=== PATIENT | male | born 1970 | race African-American/Black ===

== ENCOUNTER 2017-09-07 16:09 | Emergency (ER) | payer OTHER, MEDICARE ==
--- NOTE | 2017-09-07 16:18 | ED Physician Documentation ---
General Adult - HISTORIAN Historian: patient, paramedics - [facility] Stated Complaint: hypoglycemia Chief Complaint: General Adult Additional Information: Dialysis pt with insulin pump was at [facility]. Says stomach had been upset - he says he has gastroparesis - and he lay down to take a nap. When he woke, he was diaphoretic and clammy and his glucose was 60. He ingested 6 glucose pills. Ems arrived and glucose was in 40's. Given glucagon and D50 and glucose per EMS was 220. On arrival in ER, glucose 154. Pt alert and talking logically. Feels subjectively cold, but almost back to his baseling. - ROS CONST: no problems - PAST HX Past History: other (DM, CRF and dialysis, gastroparesis) Allergies/Adverse Reactions: Allergies Allergy/AdvReac Type Severity Reaction Status Date / Time acetaminophen Allergy Verified 09/07/17 16:32 [From Darvocet-N] atorvastatin [From Lipitor] Allergy Verified 09/07/17 16:32 clarithromycin [From Biaxin] Allergy Verified 09/07/17 16:32 lisinopril Allergy Verified 09/07/17 16:32 metoclopramide [From Reglan] Allergy Verified 09/07/17 16:32 morphine Allergy Verified 09/07/17 16:32 prochlorperazine Allergy Verified 09/07/17 16:32 [From Compazine] propoxyphene Allergy Verified 09/07/17 16:32 [From Darvocet-N] pseudoephedrine Allergy Verified 09/07/17 16:32 [From Sudafed] [id number] Reductase Allergy Verified 09/07/17 16:32 Inhibitor iv dye Allergy Uncoded 09/07/17 16:32 tape Allergy Uncoded 09/07/17 16:32 Home Medications: Ambulatory Orders Medication Instructions Recorded Aspirin [Aspir-Low] 81 mg PO 09/07/17 Azelastine HCl [Astelin] 09/07/17 Azelastine HCl [Astelin] 1 spray NS 09/07/17 Carvedilol [Coreg] 09/07/17 Clonidine [Clonidine] 09/07/17 Docusate Sodium [Colace] 09/07/17 Esomeprazole Magnesium 09/07/17 [Esomeprazole Magnesium] Fluticasone Propionate [[place] 55 mcg IH 09/07/17 Respiclick] Gabapentin [Neurontin] 100 mg PO TID 09/07/17 Hydralazine HCl [Hydralazine HCl] 09/07/17 Insulin Pump Syringe, 1.8 ml 1 each MC 09/07/17 [Minimed [place]] Lactulose [Constulose] 10 gm PO 09/07/17 Lansoprazole [Lansoprazole] 09/07/17 Lansoprazole [Prevacid] 30 mg PO 09/07/17 Linaclotide [Linzess] 09/07/17 Losartan Potassium [Cozaar] 50 mg PO DAILY 09/07/17 Ondansetron HCl Rapdis [Zofran Odt] 8 mg PO 09/07/17 Ondansetron [Zofran Odt] 4 mg PO 09/07/17 Sevelamer Carbonate [Renvela] 200 mg PO 09/07/17 Simethicone [Gas-X] 80 mg PO 09/07/17 Tramadol HCl [Ultram] 09/07/17 amLODIPine BESYLATE [Norvasc] 10 mg PO 0900 09/07/17 - SOCIAL HX Smoking History: non-smoker - FAMILY HX Family History: No - REVIEWED ASSESSMENTS Nursing Assessment Reviewed: Yes Vitals Reviewed: Yes Progress - Progress Progress: Patient Study Name: PADDY STALEY Date: Sep 07, 2017 4:23:04 PM CDT Modality Type: DX Gender: M Description: CHEST : 70 Institution: [facility] Physician: WILLIE SMITH - LIZETH Portable view chest Clinical history: Chest pain Findings: The cardiothymic silhouette is enlarged with pulmonary venous congestion. There are infiltrate right lung which could reflect pulmonary edema. No pleural effusion or pneumothorax. Impression: 1. Enlarged cardiothymic silhouette with pulmonary venous congestion. Pericardial effusion is not excluded. 2. Infiltrate in the right lower lobe which could reflect edema. Followup recommended Electronically signed on Sep 07, 2017 4:48:11 PM CDT by: Ajay Augustine 1755, pt discussed with Dr. Jh Zamarripa. Pt has had chronic cardiomegaly and BNP's > 35,000 for months. Pt's coughing ceased after zofran, protonix and emesis x1. He is asleep. 1820, FSG 155 ED Results Lab/Radiology - Orders Orders: ED Orders Category Date Time Status Place IV Lock 1T Care 09/07/17 16:12 Ordered CBC/PLATELET/DIFF Routine Lab 09/07/17 Ordered CMP [CMP] Routine Lab 09/07/17 Ordered General Adult Physical Exam - PHYSICAL EXAM GENERAL APPEARANCE: moderate distress EENT: eye inspection normal, ENT inspection normal, pharynx normal NECK: normal inspection RESPIRATORY: no resp distress, breath sounds normal CVS: reg rate & rhythm, heart sounds normal ABDOMEN: soft, no organomegaly, normal bowel sounds BACK: normal inspection, no CVA tenderness SKIN: warm/dry, normal color EXTREMITIES: no evidence of injury, no edema NEURO: CN's nml as tested, motor nml, sensation nml, cognition normal Discharge Clincal Impression: Hypoglycemia Referrals: Primary Doctor,No [Primary Care Provider] - 2 Days Condition: Good Disposition: 01 HOME, SELF-CARE Decision to Admit: NO Decision Time: 18:22
[2017-09-07] MEDS: ONDANSETRON HCL/PF 4 MG/ 2ML VIAL IVP ONE ×2 (16:45→17:05)
[2017-09-07] MEDS: PANTOPRAZOLE SODIUM 40 MG in 0.9 % SODIUM CHLORIDE 50 ML IV ONE (16:45)
[2017-09-07 16:47] LABS: BASOPHILS % 0.6 (0.0-1.5); EOSINOPHILS % 9.9 % (0.0-6.8); MEAN CORPUSCULAR HEMOGLOBIN 28.4 pg (28.0-34.0); MEAN CORPUSCULAR VOLUME 87.8 fl (80.0-100.0); MONOCYTES % 4.8 % (0.0-11.0); NEUTROPHILS # 2.8 # k/uL (1.4-7.7)
[2017-09-07] MEDS: PANTOPRAZOLE SODIUM INJ. 40 MG VIAL ONE (17:10)
--- NOTE | 2017-09-07 17:13 | Diagnostic Imaging Report ---
[facility] [address] [facility].[address] [id number] Report Submission Date: Sep 07, 2017 4:48:11 PM CDT Patient Study Name: PADDY STALEY Date: Sep 07, 2017 4:23:04 PM CDT Modality Type: DX Gender: M Description: CHEST : 70 Institution: [facility] Physician: WILLIE MSITH Portable view chest Clinical history: Chest pain Findings: The cardiothymic silhouette is enlarged with pulmonary venous congestion. There are infiltrate right lung which could reflect pulmonary edema. No pleural effusion or pneumothorax. Impression: 1. Enlarged cardiothymic silhouette with pulmonary venous congestion. Pericardial effusion is not excluded. 2. Infiltrate in the right lower lobe which could reflect edema. Followup recommended Electronically signed on Sep 07, 2017 4:48:11 PM CDT by: Ajay GORDON
[2017-09-07] MEDS: ONDANSETRON HCL 4 MG TAB.RAPDIS PO ONE (18:33)
[2017-09-07 19:58] VITALS: BP 209/107
== END 2017-09-07 18:35 | disposition home or self-care (01) ==
LOC: ED 16:09
DX: R73.9 Hyperglycemia, unspecified (principal)
CPT/HCPCS: 71045; 80053; 83880; 85025; A9270; J2405; 96365; 96374; 99284